=== PATIENT | female | born 1945 | race Hispanic/Latino ===

== ENCOUNTER 2021-12-18 12:27 | Emergency (ER) | payer OTHER ==
--- OUTSIDE RECORDS SUMMARY | 2021-12-18 12:30 | XMS REPORT | Continuity of Care Document ---
:1945 Author Organization [facility] t Address [address] [place] [place] [address] Care Team Providers Name Role Phone Jolie COUCH, Buzz Primary Care Physician Last Pierre MD Attending Clinician Payers Payer Name Policy Type Policy Number Effective Date Expiration Date S ource Problems Condition Condition Condition Status Onset Resolution Last Treating Co mments Source Name Details Category Date Date Treatment Clinician Date No known No known Disease Unive rs active active ity of problems problems [facility] Allergies, Adverse Reactions, Alerts Allergy Allergy Status Severity Reaction(s) Onset Inactive Treating Comm ents Source Name Type Date Date Clinician Penicill Drug Active Swelling Univer s in Allergy 2-23 ity of 00:00: [place] 00 Medical Branch Iodine Propensi Active Hives Severe Univers ty to 904 reaction ity of adverse 00:00: to [place] reaction 00 Shellfish Medic al s to Branch drug Neomycin Propensi Active Hives Univer s -Polymyx ty to 01-09 ity of in adverse 00:00: [place] B-Dexame reaction 00 Medica l th s Branch Social History Social Habit Start Date Stop Date Quantity Comments Source Exposure to Not sure [facility] SARS-CoV-2 (event) Medica l Branch Tobacco use and 2018-01-09 2018-01-09 Never used [facility] exposure 00:00:00 00:00:00 Medical Branch Sex [birth year] [facility] [place] 00:00:00 00:00:00 Medical Branch Smoking Status Start Date Stop Date Source Never smoker [facility] Medical Branch Medications Ordered Filled Start Stop Current Ordering Indication Dosage Frequency Signature Comments Components Source Medication Medication Date Date Medication? Clinician (SIG) Name Name yvonne 2021- No [id number] 40mg Univers ne 08-09 9104 ity of acetonide 21:15: 20:01 [place] (KENALOG) 00 :00 Medical injection Branch 40 mg triamcinolo 2021- No [id number] 40mg 40 mg, Univers ne 08-09 9104 Intramuscu ity of acetonide 21:15: 20:01 [place]KE[place] 00 :00 1 dose, On Medi saranya injection 08/09/21 Bran ch 40 mg at 1615, Routine losartan Yes 100mg Take 100 Univ ers 100 mg 2-23 mg by ity of tablet 09:27: mouth [place] [address] daily. Medical Branch amLODIPine Yes 10mg Take 10 mg U nivers 10 mg 2-23 by mouth ity of tablet 09:27: daily. [place] [address] Medical Branch ranitidine Yes 300mg Take 300 Un kati 300 mg 2-23 mg by ity of tablet 09:27: mouth at [place] [address] bedtime. Medical Branch naproxen Yes 500mg Take 500 Univ ers 500 mg 2-23 mg by ity of tablet 09:27: mouth 2 [place] 36 (two) Medical times Branch daily with meals. ergocalcife Yes 1000mg Take 1,000 Univers rol, 2-23 mg by ity of vitamin D2, 09:27[place] (VITAMIN D 36 Medical ORAL) Branch vitamin Yes 50ug Take 50 Univers B-12 2-23 mcg by ity of (VITAMIN 09:27: mouth [place] B-12) 100 36 daily. Medical mcg tablet Branch multivit-mi Yes 1{tbl} Take 1 Un kati nerals/foli 2-23 tablet by ity of c acid 09:27: mouth [place] (CENTRUM 36 daily. Medical VITAMINTS Branch ORAL) calcium Yes 600mg Take 600 Unive rs carbonate 2-23 mg by ity of (CALCIUM 09:27: mouth. [place] 300 ORAL) [address] [place] [address] loratadine Yes 10mg Take 10 mg U nivers 10 mg 2-23 by mouth. ity of capsule 09:27: [address] omeprazole 0 Yes 20mg Take 20 mg U nivers 20 mg 2-23 by mouth ity of capsule 09:27: daily. [address] Vital Signs Vital Name Observation Time Observation Value Comments Source Systolic blood 2021-08-09 19:07:00 142 mm[Hg] Univer sity [facility] Diastolic blood 2021-08-09 19:07:00 78 mm[Hg] Unive rsity [facility] Heart rate 2021-08-09 19:07:00 65 /min [facility] Body height 2021-08-09 19:00:00 154.9 cm [facility] Body weight 2021-08-09 19:00:00 69.355 kg [facility] BMI 2021-08-09 19:00:00 28.91 kg/m2 [facility] Procedures This patient has no known procedures. Encounters Start End Encounter Admission Attending Care Care Encounter Source Date/Time Date/Time Type Type Clinicians Facility Department ID 2021-08-09 2021-08-09 Office Ignacio [facility] [id number] [facility] 14:00:00 16:42:09 Visit [facility] [id number] it y of PROSPECT [id number] Hayden as FLY?BLEA [id number] [address] MEDICAL OFFICE BUILDING Results Test Description Test Time Test Comments Results Result Comments Source OCCULT BLD,FECAL,IMMUNOASSAY DIAG 2021-11-26 10:16:42 Test Item Value Reference Range Interpretation Comme nts OCCULT BLD, FECAL (test code NEGATIVE NEGATIVE UNLESS OTHERWISE INDICATED, ALL = 31762) TESTING PERFORM ED ATCLINICAL PATHOLOGY [facility] [address] [place] [id number] ENVELOPE STUFFER: TITO LU M.D. CLIA NUMBER [id number] CAP ACCREDITATION N O. [id number] LIPID [id number] 07:30:37 Test Item Value Reference Range Interpretation Comments CHOLESTEROL (test 182 MG/DL <200 code = 2210) TRIGLYCERIDES (test 93 MG/DL <150 code = 2232) HDL CHOLESTEROL (test 51 MG/DL >39 code = 2220) CALC LDL CHOL (test 112 MG/DL <100 H NOTE: C ALCULATED LDL code = 2237) IS BASED ON LYNN-CANALES METHOD WHICHINCLUDES ADJUSTABLE TRIGLYCERIDE:VL DL CHOLESTEROL RAT IO.THIS FACTOR VARIES B Y MEASURED TRIGLY CERIDE AND NON-HDLCHOL ESTEROL CONCENTRATIONS WITH INCREASED CALCU LATED LDL SEENIN HIGH ER TRIGLYCERIDE OR LOWER NON-HDL SPECIME NS. FOR MOREINFORMATION , SEE CLIENT ANNOUNCE MENT AT [email or web address] RISK RATIO LDL/HDL 2.20 RATIO <3.22 (test code = 2238) COMPREHENSIVE METABOLIC [id number] 07:30:37 Test Item Value Reference Range Interpretation Comments GLUCOSE (test code = 95 MG/DL 70-99 2216) BUN (test code = 24 MG/DL 8-23 H 2207) CREATININE (test 1.03 MG/DL 0.60-1.30 code = 2214) eGFR (2020 CKD-EPI) 56 >60 L (test code = 19919) ML/MIN/1.73 CALC BUN/CREAT (test 23 RATIO 6-28 code = 2235) SODIUM (test code = 142 MEQ/L 019-361 5434) POTASSIUM (test code 4.3 MEQ/L 3.5-5.4 = 2227) CHLORIDE (test code 103 MEQ/L 95-107 = 2214) CARBON DIOXIDE (test 25 MEQ/L 19-31 code = 2206) CALCIUM (test code = 9.8 MG/DL 8.5-10.5 2208) PROTEIN, TOTAL (test 7.5 G/DL 6.1-8.3 code = 2229) ALBUMIN (test code = 4.6 G/DL 3.5-5.2 2200) CALC GLOBULIN (test 2.9 G/DL 1.9-3.7 code = 2240) CALC A/G RATIO (test 1.6 RATIO 1.0-2.6 code = 2234) BILIRUBIN, TOTAL 0.9 MG/DL See_Comment [Automated message] (test code = 2207) The [employer] which generated this result transmitted ref erence range: <=1.2. T he reference range was not used to int erpret this result as normal/abnormal . ALKALINE PHOSPHATASE 91 U/L 40-142 (test code = 2203) AST (test code = 21 U/L 9-40 2217) ALT (test code = 14 U/L 5-40 UNLESS OTH ERWISE 9) INDICATED, ALL TESTING PERFORM ED ATCL[facility], [facility]. [address] [place] [id number] [place] [address] DIRECTOR: TITO LU M.D. CLIA NUMBER [id number] CAP ACCREDITATION N O. [id number]
[2021-12-18] MEDS ORDERED: MORPHINE 4 MG/ML SYR ONE (13:33)
[2021-12-18] MEDS ORDERED: ONDANSETRON 4 MG (ODT) TAB ONE (13:34)
--- NOTE | 2021-12-18 14:13 | RAD REPORT ---
EXAM DESCRIPTION: RAD - Knee Left 3 View - 12/18/2021 2:03 pm CLINICAL HISTORY: Left knee pain FINDINGS: No fracture or dislocation is seen. Chondrocalcinosis
--- NOTE | 2021-12-18 14:15 | RAD REPORT ---
EXAM DESCRIPTION: RAD - Knee Right 3 View - 12/18/2021 2:03 pm CLINICAL HISTORY: Right knee pain FINDINGS: No fracture or dislocation is seen. Chondrocalcinosis. Mild narrowing medial compartment with osteophytes. Moderate joint effusion
--- NOTE | 2021-12-18 14:17 | RAD REPORT ---
EXAM DESCRIPTION: USExtrem Venous W Compress Bil12/18/2021 1:45 pm CLINICAL HISTORY: Leg pain COMPARISON: none FINDINGS: The common femoral, superficial femoral, popliteal and posterior tibial veins bilaterally are compressible and demonstrate augmentation. Doppler demonstrates good flow. Grayscale, color and spectral analysis performed on all vessels Moderate joint effusion IMPRESSION: No evidence of deep venous thrombosis involving either lower extremity. Moderate joint effusion
--- NOTE | 2021-12-18 14:52 | EDPHYS ---
Physician Documentation [facility] Name: Maynor Zimmer Age: 76 yrs Sex: Female : 1945 Arrival Date: 12/18/2021 Time: 12:31 Bed 13 Private MD: Sydnie Dave R ED Physician Alonso Monzon HPI: 12/18 14:50 This 76 yrs old Female presents to ER via Ambulatory with complaints of Leg jmm Swelling, Leg Pain. 14:50 The patient presents with pain. jmm Historical: - Allergies: 12:41 Iodine; ld1 - PMHx: 12:41 Hypertensive disorder; Arthritis; ld1 - PSHx: 12:41 Total abdominal hysterectomy; ld1 - Immunization history:: Adult Immunizations up to date, Client reports receiving the 2nd dose of the Covid vaccine. - Social history:: Smoking status: Patient denies any tobacco usage or history of. Patient/guardian denies using alcohol. ROS: 14:50 Constitutional: Negative for fever, chills, and weight loss, Cardiovascular: Negative jmm for chest pain, palpitations, and edema, Respiratory: Negative for shortness of breath, cough, wheezing, and pleuritic chest pain. 14:50 MS/extremity: Positive for pain. 14:50 All other systems are negative. Exam: 14:50 Constitutional: This is a well developed, well nourished patient who is awake, alert, jmm and in no acute distress. Head/Face: atraumatic. Eyes: EOMI, no conjunctival erythema appreciated ENT: Moist Mucus Membranes Neck: Trachea midline, Supple Chest/axilla: Normal chest wall appearance and motion. Cardiovascular: Regular rate and rhythm. No edema appreciated Respiratory: Normal respirations, no respiratory distress appreciated Abdomen/GI: Non distended Back: Normal ROM Skin: General appearance color normal 14:50 Musculoskeletal/extremity: mild swelling noted to the right knee, non indurated, no erythema, from appreciated, compartments are soft, NVI. FROM noted to the left knee. Popliteal pain, compartments are soft, NVI. 14:50 Skin: Appearance: Color: normal in color. 14:50 Neuro: Orientation: is normal, Mentation: is normal, Memory: is normal. 14:50 Psych: Behavior/mood is pleasant, cooperative. Vital Signs: 12:43 BP 148 / 61; Pulse 66; Resp 18; Temp 98.1(O); Pulse Ox 100% on R/A; Weight 68.04 kg; ld1 Height 5 ft. 1 in. (154.94 cm); Pain 9/10; 14:30 BP 128 / 70; Pulse 62; Resp 18; Temp 98.0; Pulse Ox 99% on R/A; ph 12:43 Body Mass Index 28.34 (68.04 kg, 154.94 cm) ld1 MDM: 13:00 Patient medically screened. robbie 14:51 Data reviewed: vital signs, nurses notes. Counseling: I had a detailed discussion with [facility] the patient and/or guardian regarding: the historical points, exam findings, and any diagnostic results supporting the discharge/admit diagnosis, radiology results, the need for outpatient follow up, to return to the emergency department if symptoms worsen or persist or if there are any questions or concerns that arise at home. 12/18 13:06 Order name: Knee Right 3 View XRAY; Complete Time: 14:29 [facility] 12/18 13:06 Order name: Knee Left 3 View XRAY; Complete Time: 14:29 [facility] 12/18 13:07 Order name: US Extremity Venous W Compression Kai; Complete Time: 14:29 [facility] Administered Medications: 14:30 Drug: morphine 4 mg Route: IM; Site: right deltoid; ph 15:15 Follow up: Response: No adverse reaction ph 14:30 Drug: Zofran (Ondansetron) 4 mg Route: PO; ph 15:15 Follow up: Response: No adverse reaction ph Disposition: 18:54 Co-signature as Attending Physician, Alonso Monzon MD I agree with the assessment and robbie plan of care. Disposition Summary: 12/18/21 14:52 Discharge Ordered Location: Home [facility] Condition: Stable [facility] Diagnosis - Pain in right knee jmm - Pain in left knee [facility] Followup: [facility] - With: Private Physician - When: 2 - 3 days - Reason: Recheck today's complaints, Continuance of care, Re-evaluation by your physician Discharge Instructions: - Discharge Summary Sheet [facility] - Joint Pain jmm - Acute Knee Pain, Adult [facility] Forms: - Medication Reconciliation Form [facility] - Thank You Letter [facility] - Antibiotic Education [facility] - Prescription Opioid Use [facility] Prescriptions: - orphenadrine citrate 100 mg Oral Tablet Sustained Release - take 1 tablet by ORAL route 2 times per day As needed; 20 tablet; Refills: 0, [facility] Product Selection Permitted Signatures: Dispatcher [employer] Alonso Richey MD MD cha Mickail, Joel, PA PA jmm Hall, Patricia, RN RN Megha Christian RN RN ld1
--- NOTE | 2021-12-18 14:52 | ER ---
Nurse's Notes [facility] Name: Maynor Zimmer Age: 76 yrs Sex: Female : 1945 Arrival Date: 12/18/2021 Time: 12:31 Bed 13 Private MD: Sydnie Dave R Diagnosis: Pain in right knee;Pain in left knee Presentation: 12/18 12:43 Chief complaint: Patient states: MYRA knee pain - reports having a doctor that injected ld1 her knees. Medicine helped for 5 months. Today "I woke up and can not handle the pain.". Coronavirus screen: At this time, the client does not indicate any symptoms associated with coronavirus-19. Ebola Screen: No symptoms or risks identified at this time. Initial Sepsis Screen: Does the patient meet any 2 criteria? No. Patient's initial sepsis screen is negative. Does the patient have a suspected source of infection? No. Patient's initial sepsis screen is negative. Risk Assessment: Do you want to hurt yourself or someone else? Patient reports no desire to harm self or others. Onset of symptoms was December 18, 2021. 12:43 Method Of Arrival: Ambulatory ld1 12:43 Acuity: YI 4 ld1 Triage Assessment: 12:41 General: Appears in no apparent distress. comfortable, Behavior is calm, cooperative, ld1 appropriate for age. Pain: Complains of pain in right knee and left knee Pain does not radiate. Pain currently is 9 out of 10 on a pain scale. EENT: No signs and/or symptoms were reported regarding the EENT system. Neuro: Level of Consciousness is awake, alert, obeys commands, Oriented to person, place, time, situation. Cardiovascular: Capillary refill < 3 seconds Patient's skin is warm and dry. Respiratory: Airway is patent Respiratory effort is even, unlabored. GI: Abdomen is round non-distended. Historical: - Allergies: 12:41 Iodine; ld1 - PMHx: 12:41 Hypertensive disorder; Arthritis; ld1 - PSHx: 12:41 Total abdominal hysterectomy; ld1 - Immunization history:: Adult Immunizations up to date, Client reports receiving the 2nd dose of the Covid vaccine. - Social history:: Smoking status: Patient denies any tobacco usage or history of. Patient/guardian denies using alcohol. Screenin:40 Abuse screen: Denies threats or abuse. Denies injuries from another. Nutritional ph screening: No deficits noted. Tuberculosis screening: No symptoms or risk factors identified. Fall Risk None identified. Assessment: 13:15 General: Appears in no apparent distress. comfortable, well groomed, Behavior is calm, ph cooperative, appropriate for age, Denies fever, feeling ill. Pain: Complains of pain in right knee and left knee. Neuro: Level of Consciousness is awake, alert, obeys commands, Oriented to person, place, time, situation. Cardiovascular: Capillary refill < 3 seconds in bilateral fingers Patient's skin is warm and dry. Respiratory: Airway is patent Respiratory pattern is regular, symmetrical. Derm: Skin is healthy with good turgor, Skin is pink, warm \\T\\ dry. Musculoskeletal: Circulation, motion, and sensation intact. Range of motion: intact in all extremities. 13:40 Reassessment: Pt in radiology for US. ph Vital Signs: 12:43 BP 148 / 61; Pulse 66; Resp 18; Temp 98.1(O); Pulse Ox 100% on R/A; Weight 68.04 kg; ld1 Height 5 ft. 1 in. (154.94 cm); Pain 9/10; 14:30 BP 128 / 70; Pulse 62; Resp 18; Temp 98.0; Pulse Ox 99% on R/A; ph 12:43 Body Mass Index 28.34 (68.04 kg, 154.94 cm) ld1 ED Course: 12:31 Patient arrived in ED. mr 12:31 Sydnie Dave MD is Private Physician. mr 12:41 Arm band placed on right wrist. ld1 12:44 Triage completed. ld1 12:45 Марина Lujan, VIJI is Primary Nurse. ph 12:59 Shashank Brizuela PA is PHCP. jmm 12:59 Alonso Monzon MD is Attending Physician. jmm 13:41 Patient has correct armband on for positive identification. Bed in low position. Call ph light in reach. Door closed. Noise minimized. Warm blanket given. 13:47 US Extremity Venous W Compression Myra In Process Unspecified. EDMS 14:05 Knee Left 3 View XRAY In Process Unspecified. EDMS 14:05 Knee Right 3 View XRAY In Process Unspecified. EDMS 15:00 No provider procedures requiring assistance completed. Patient did not have IV access ph during this emergency room visit. Administered Medications: 14:30 Drug: morphine 4 mg Route: IM; Site: right deltoid; ph 15:15 Follow up: Response: No adverse reaction ph 14:30 Drug: Zofran (Ondansetron) 4 mg Route: PO; ph 15:15 Follow up: Response: No adverse reaction ph Medication: 13:40 VIS not applicable for this client. ph Outcome: 14:52 Discharge ordered by . iris 15:15 Patient left the ED. mahamed 15:15 Discharged to home via wheelchair, with family. ph 15:15 Condition: good 15:15 Discharge instructions given to patient, Instructed on discharge instructions, follow up and referral plans. medication usage, Demonstrated understanding of instructions, follow-up care, medications, Prescriptions given X 1. Signatures: Dispatcher [employer] EDTX Shashank Brizuela PA PA jmm Rivera, Mary mr Марина Lujan RN RN Megha Christian RN RN [facility] Janay Burkett [facility]
[2021-12-18 15:24] VITALS: BP 148/61; TEMP 98.1; O2SAT 100
== END 2021-12-18 15:15 | disposition home or self-care (01) ==
LOC: ER 12:27
DX: M25.562 Pain in left knee (principal); M25.561 Pain in right knee; I10 Essential (primary) hypertension; Z91.048 Other nonmedicinal substance allergy status
CPT/HCPCS: 73562 ×2; 93970; 96372; 99283; Q0162